=== PATIENT | male | born 1985 | race Hispanic/Latino ===

== ENCOUNTER 2016-11-01 23:09 | Emergency (ER) | payer OTHER ==
[2016-11-02] MEDS ORDERED: MOTRIN PO ONE (05:39)
[2016-11-02] MEDS ORDERED: NORCO 5/325 PO ONE (09:30)
--- NOTE | 2016-11-02 09:35 | Emergency Department Report ---
ED ENT HPI - General Chief complaint: Earache Stated complaint: LEFT EAR BLEEDING Time Seen by Provider: 11/02/16 09:27 Source: patient Mode of arrival: Ambulatory Limitations: No Limitations - History of Present Illness Initial comments: Pt reports L ear pain with tinnitus and bloody drainage x 3 days. Also sinus congestion, no fever. No injuries. MD complaint: ear pain -: Gradual, days(s) (3) Location: L ear Severity: moderate Severity scale (0 -10): 7 Quality: aching Consistency: constant Improves with: none Worsens with: none Associated Symptoms: tinnitus, hearing loss, discharge from ear - Related Data Previous Rx's Medication Instructions Recorded Last Taken Type Acetaminophen/Codeine [Tylenol #3] 1 tab PO Q6H PRN #15 tab 11/02/16 Unknown Rx Amoxicillin [Amoxicillin TAB] 875 mg PO BID #20 tablet 11/02/16 Unknown Rx Allergies Allergy/AdvReac Type Severity Reaction Status Date / Time No Known Allergies Allergy Verified 11/01/16 23:13 ED Dental HPI - General Chief complaint: Earache Stated complaint: LEFT EAR BLEEDING Time Seen by Provider: 11/02/16 09:27 Source: patient Mode of arrival: Ambulatory Limitations: No Limitations - Related Data Previous Rx's Medication Instructions Recorded Last Taken Type Acetaminophen/Codeine [Tylenol #3] 1 tab PO Q6H PRN #15 tab 11/02/16 Unknown Rx Amoxicillin [Amoxicillin TAB] 875 mg PO BID #20 tablet 11/02/16 Unknown Rx Allergies Allergy/AdvReac Type Severity Reaction Status Date / Time No Known Allergies Allergy Verified 11/01/16 23:13 ED Review of Systems ROS: Stated complaint: LEFT EAR BLEEDING Other details as noted in HPI Comment: All other systems reviewed and negative Constitutional: denies: chills, fever Eyes: denies: eye pain, eye discharge, vision change ENT: ear pain, congestion. denies: throat pain Respiratory: denies: cough, shortness of breath, wheezing Cardiovascular: denies: chest pain, palpitations Endocrine: no symptoms reported Gastrointestinal: denies: abdominal pain, nausea, diarrhea Genitourinary: denies: urgency, dysuria Musculoskeletal: denies: back pain, joint swelling, arthralgia Skin: denies: rash, lesions Neurological: denies: headache, weakness, paresthesias Psychiatric: denies: anxiety, depression Hematological/Lymphatic: denies: easy bleeding, easy bruising ED Past Medical Hx - Past Medical History Previous Medical History?: No - Surgical History Past Surgical History?: No - Social History Smoking Status: Current Every Day Smoker Substance Use Type: None - Medications Home Medications: Home Medications Medication Instructions Recorded Confirmed Last Taken Type Acetaminophen/Codeine [Tylenol #3] 1 tab PO Q6H PRN #15 tab 11/02/16 Unknown Rx Amoxicillin [Amoxicillin TAB] 875 mg PO BID #20 tablet 11/02/16 Unknown Rx ED Physical Exam - General Limitations: No Limitations General appearance: alert, in no apparent distress - Head Head exam: Present: atraumatic, normocephalic - Eye Eye exam: Present: normal appearance, PERRL, EOMI - ENT ENT exam: Present: normal orophraynx, mucous membranes moist, other (R TM/canal WNL. L canal shows yin amount of dried blood. TM reveals erythema and what appears to be a very tiny perforation with dried blood at approx 8:00.) - Neck Neck exam: Present: normal inspection - Respiratory Respiratory exam: Present: normal lung sounds bilaterally. Absent: respiratory distress - Cardiovascular Cardiovascular Exam: Present: regular rate, normal rhythm. Absent: systolic murmur, diastolic murmur, rubs, gallop - GI/Abdominal GI/Abdominal exam: Present: soft, normal bowel sounds - Rectal Rectal exam: Present: deferred - Extremities Exam Extremities exam: Present: normal inspection - Back Exam Back exam: Present: normal inspection - Neurological Exam Neurological exam: Present: alert, oriented X3 - Psychiatric Psychiatric exam: Present: normal affect, normal mood - Skin Skin exam: Present: warm, dry, intact, normal color. Absent: rash ED Course Vital Signs 11/01/16 23:15 Temperature 98.7 F Pulse Rate 104 H Respiratory 18 Rate Blood Pressure 128/83 [Right] O2 Sat by Pulse 100 Oximetry - Reevaluation(s) Reevaluation #1: 11/02/16 09:33 NAD, stable for d/c. ED Medical Decision Making - Medical Decision Making Pt appears to have a tiny TM perforation on L. Will place on antibiotics and have him follow with ENT. - Differential Diagnosis OM, OE, TM perforation Critical care attestation.: If time is entered above; I have spent that time in minutes in the direct care of this critically ill patient, excluding procedure time. ED Disposition Clinical Impression: Left otitis media with spontaneous rupture of eardrum Disposition: DISCHARGED TO HOME OR SELFCARE Is pt being admited?: No Condition: Good Instructions: Otitis Media (ED), Ruptured Eardrum (ED) Prescriptions: Acetaminophen/Codeine [Tylenol #3] 1 tab PO Q6H PRN #15 tab PRN Reason: Pain Amoxicillin [Amoxicillin TAB] 875 mg PO BID #20 tablet Referrals: PRIMARY CARE, [Primary Care Provider] - 3-5 Days GEOVANNA OWENS MD [Staff Physician] - 2-3 Days Time of Disposition: 09:35
[2016-11-02 09:42] VITALS: BP 120/82
== END 2016-11-02 09:48 | disposition home or self-care (01) ==
LOC: ED 23:09
DX: H66.012 Acute suppurative otitis media with spontaneous rupture of ear drum, left ear (principal); F17.200 Nicotine dependence, unspecified, uncomplicated
CPT/HCPCS: 99282

== ENCOUNTER 2017-02-20 22:56 | Emergency (ER) | payer SELFPAY ==
--- NOTE | 2017-02-21 05:01 | Emergency Department Report ---
- General Chief complaint: Skin/Abscess/Foreign Body Stated complaint: STAPH INFECTION Time Seen by Provider: 02/21/17 04:58 Source: patient Mode of arrival: Ambulatory Limitations: No Limitations - History of Present Illness Initial comments: 31M PMH abscesses, MRSA infections in the past p/w c/o boil to his LLE in mid calf region x3 days. Denies fevers, chills, states he may have been bitten by spider while cutting grass. On exam pt has visible abscess w'/ surrounding cellulitis left mid calf region about 8 cm in diameter complaint: insect bite/sting, abscess/boil Onset/Timin -: days(s) Tetanus Up to Date: yes Severity: moderate Severity scale (0 -10): 5 Quality: aching Consistency: constant - Related Data Previous Rx's Medication Instructions Recorded Last Taken Type Acetaminophen/Codeine [Tylenol #3] 1 tab PO Q6H PRN #15 tab 11/02/16 Unknown Rx Amoxicillin [Amoxicillin TAB] 875 mg PO BID #20 tablet 11/02/16 Unknown Rx Cephalexin [Keflex] 500 mg PO Q12HR #14 cap 02/21/17 Unknown Rx Ibuprofen [Motrin] 600 mg PO Q8H PRN #30 tablet 02/21/17 Unknown Rx Sulfamethoxazole/Trimethoprim 1 each PO BID #14 tablet 02/21/17 Unknown Rx [Bactrim DS TAB] Allergies Allergy/AdvReac Type Severity Reaction Status Date / Time No Known Allergies Allergy Verified 11/01/16 23:13 Abscess Boil HPI - HPI Chief Complaint: Skin/Abscess/Foreign Body Stated Complaint: STAPH INFECTION Time Seen by Provider: 02/21/17 04:58 Duration: 3 Days History: Yes Pain, Yes Purulent Drainage (mild purulent drainage), Yes Previous History, Yes Insect Bite (possible spider bite), No Fever, No Numbness, No Foreign Body Home Medications: Previous Rx's Medication Instructions Recorded Last Taken Type Acetaminophen/Codeine [Tylenol #3] 1 tab PO Q6H PRN #15 tab 11/02/16 Unknown Rx Amoxicillin [Amoxicillin TAB] 875 mg PO BID #20 tablet 11/02/16 Unknown Rx Cephalexin [Keflex] 500 mg PO Q12HR #14 cap 02/21/17 Unknown Rx Ibuprofen [Motrin] 600 mg PO Q8H PRN #30 tablet 02/21/17 Unknown Rx Sulfamethoxazole/Trimethoprim 1 each PO BID #14 tablet 02/21/17 Unknown Rx [Bactrim DS TAB] Allergies/Adverse Reactions: Allergies Allergy/AdvReac Type Severity Reaction Status Date / Time No Known Allergies Allergy Verified 11/01/16 23:13 ED Review of Systems ROS: Stated complaint: STAPH INFECTION Other details as noted in HPI Constitutional: denies: chills, fever Eyes: denies: eye pain, eye discharge, vision change ENT: denies: ear pain, throat pain Respiratory: denies: cough, shortness of breath, wheezing Cardiovascular: denies: chest pain, palpitations Endocrine: no symptoms reported Gastrointestinal: denies: abdominal pain, nausea, diarrhea Genitourinary: denies: urgency, dysuria Musculoskeletal: denies: back pain, joint swelling, arthralgia Skin: as per HPI. denies: rash, lesions Neurological: denies: headache, weakness, paresthesias Psychiatric: denies: anxiety, depression Hematological/Lymphatic: denies: easy bleeding, easy bruising ED Past Medical Hx - Past Medical History Previous Medical History?: Yes Additional medical history: MRSA - Social History Smoking Status: Current Every Day Smoker - Medications Home Medications: Home Medications Medication Instructions Recorded Confirmed Last Taken Type Acetaminophen/Codeine [Tylenol #3] 1 tab PO Q6H PRN #15 tab 11/02/16 Unknown Rx Amoxicillin [Amoxicillin TAB] 875 mg PO BID #20 tablet 11/02/16 Unknown Rx Cephalexin [Keflex] 500 mg PO Q12HR #14 cap 02/21/17 Unknown Rx Ibuprofen [Motrin] 600 mg PO Q8H PRN #30 tablet 02/21/17 Unknown Rx Sulfamethoxazole/Trimethoprim 1 each PO BID #14 tablet 02/21/17 Unknown Rx [Bactrim DS TAB] ED Physical Exam - General Limitations: No Limitations General appearance: alert, in no apparent distress - Head Head exam: Present: atraumatic, normocephalic - Eye Eye exam: Present: normal appearance, PERRL, EOMI - ENT ENT exam: Present: mucous membranes moist - Neck Neck exam: Present: normal inspection - Respiratory Respiratory exam: Present: normal lung sounds bilaterally. Absent: respiratory distress - Cardiovascular Cardiovascular Exam: Present: regular rate, normal rhythm. Absent: systolic murmur, diastolic murmur, rubs, gallop - GI/Abdominal GI/Abdominal exam: Present: soft, normal bowel sounds - Rectal Rectal exam: Present: deferred - Extremities Exam Extremities exam: Present: normal inspection - Expanded Lower Extremity Exam Left Hip exam: Present: normal inspection, full ROM Upper Leg exam: Present: normal inspection, full ROM Knee exam: Present: normal inspection, full ROM Lower Leg exam: Present: normal inspection, tenderness, erythema (8-9cm area of erythema left mid calf region) Ankle exam: Present: normal inspection, full ROM Foot/Toe exam: Present: normal inspection, full ROM Neuro vascular tendon exam: Present: no vascular compromise (distal pulses and sensation intact) 1 - abscess w/ surrounding cellulitis here - Back Exam Back exam: Present: normal inspection - Neurological Exam Neurological exam: Present: alert, oriented X3, CN II-XII intact, normal gait - Psychiatric Psychiatric exam: Present: normal affect, normal mood - Skin Skin exam: Present: warm, dry, intact, normal color. Absent: rash ED Course Vital Signs 02/21/17 00:00 Temperature 98.0 F Pulse Rate 83 Respiratory 20 Rate Blood Pressure 109/72 O2 Sat by Pulse 96 Oximetry - I & D Left Medial Calf Type of Procedure: Simple Site: left medial calf Blade Size: 11 I & D Procedure: betadine prep, sterile dressing applied, gauze wick placed Progress: infiltrated with lidocaine, good anesthesia achieved, 1.5 cm incision made, moderate pus drainage, wound culture sent, iodoform gauze wick placed about 4 inches in [facility], (1/4 inch gauze). gauze placed externally. procedure tolerated well ED Medical Decision Making - Medical Decision Making A/P: Left medial calf abscess w/ surrounding cellulitis 1- abscess incised and drained, wound culture sent 2- keflex and bactrim bid x7 days. Motrin 600mg prn 3- borders of cellulitis marked, I advised pt to return to the ED if area of cellultis expands beyond borders over 48 hours, if he develosp fevers or chills , nausea or vomiting, reaccumulation of abscess 4- f/u with PMD Critical care attestation.: If time is entered above; I have spent that time in minutes in the direct care of this critically ill patient, excluding procedure time. ED Disposition Clinical Impression: Abscess of left lower leg, Cellulitis of left lower extremity Disposition: TO HOME OR SELFCARE Is pt being admited?: No Does the pt Need Aspirin: No Condition: Stable Instructions: Cellulitis (ED), Abscess Incision and Drainage (ED) Prescriptions: Cephalexin [Keflex] 500 mg PO Q12HR #14 cap Ibuprofen [Motrin] 600 mg PO Q8H PRN #30 tablet PRN Reason: Pain Sulfamethoxazole/Trimethoprim [Bactrim DS TAB] 1 each PO BID #14 tablet Referrals: PRIMARY CARE, [Primary Care Provider] - 3-5 Days Forms: Accompanied Note, Work/School Release Form(ED) Time of Disposition: 06:30
[2017-02-21 06:52] VITALS: BP 117/71
== END 2017-02-21 07:04 | disposition home or self-care (01) ==
LOC: ED 22:56
DX: L03.116 Cellulitis of left lower limb (principal); L02.416 Cutaneous abscess of left lower limb; F17.200 Nicotine dependence, unspecified, uncomplicated
CPT/HCPCS: 87076; 87116; 87186; 99282

== ENCOUNTER 2018-02-15 08:47 | Emergency (ER) | payer SELFPAY ==
[2018-02-15] MEDS ORDERED: NORCO 5/325 PO ONE (12:56)
--- NOTE | 2018-02-15 12:57 | Emergency Department Report ---
Chief Complaint: Extremity Injury, Lower Stated Complaint: FEET SWOLLEN Time Seen by Provider: 02/15/18 12:51 - HPI History of Present Illness: 32-year-old male presents to the emergency department with complaint of bilateral foot pain and some swelling that has been going on for the past 2 weeks. It is worse in the morning and sometimes he feels like he has trouble bearing weight secondary to the discomfort. He also complains of some redness to the second toe of the right foot. He denies any past medical history. He has not taken anything for her symptoms without any sedation. He does not have a primary care physician. - ROS Review of Systems: Positive for foot and toe pain, foot swelling, redness to the toe Negative for fever, nausea, vomiting - Exam Vital Signs: Vital Signs 02/15/18 09:26 Temperature 98.4 F Pulse Rate 67 Respiratory 20 Rate Blood Pressure 105/54 O2 Sat by Pulse 100 Oximetry Physical Exam: Patient is awake and alert and in no acute distress. He has some very mild swelling to the dorsal feet. The second toe on the right foot is slightly enlarged, erythematous and warm MSE screening note: Focused history and physical exam performed. Due to findings the following was ordered: The patient will have a CBC, BMP and uric acid level to evaluate for cellulitis versus gout versus other. X-rays have been done of the bilateral feet. He has been given a [place] for discomfort. ED Disposition for MSE Condition: Stable Referrals: PRIMARY CARE, [Primary Care Provider] - 3-5 Days
[2018-02-15 13:06] VITALS: BP 100/60
[2018-02-15 13:40] LABS: BUN/Creatinine Ratio 15; Basophils # (Auto) 0.1 K/mm3 (0.0-0.1); Basophils % (Auto) 0.7 % (0.0-1.8); Blood Urea Nitrogen 9 mg/dL (9-20); Calcium 8.9 mg/dL (8.4-10.2); Eosinophils # (Auto) 0.2 K/mm3 (0.0-0.4); Eosinophils % (Auto) 2.4 % (0.0-4.3); Hematocrit 36.3 % (35.5-45.6); Hemoglobin 12.8 gm/dl (11.8-15.2); Hemolysis Index 95; Lymphocytes # (Auto) 1.8 K/mm3 (1.2-5.4); Lymphocytes % (Auto) 24.1 % (13.4-35.0); Mean Corpuscular HGB Conc 35 % (32-34); Mean Corpuscular Hemoglobin 30 pg (28-32); Mean Corpuscular Volume 84 fl (84-94); Monocytes # (Auto) 0.8 K/mm3 (0.0-0.8); Monocytes % (Auto) 10.2 % (0.0-7.3); Platelet Count 276 K/mm3 (140-440); Red Blood Count 4.33 M/mm3 (3.65-5.03)
--- NOTE | 2018-02-15 13:43 | XRay Report ---
BILATERAL FEET, 3 VIEWS: The bony architecture is intact. Bony alignment is normal. No soft tissue abnormalities are seen. The joint spaces appear preserved. IMPRESSION: Bilateral feet within normal limits.
--- NOTE | 2018-02-15 14:28 | Emergency Department Report ---
ED Extremity Problem HPI - General Chief complaint: Extremity Injury, Lower Stated complaint: FEET SWOLLEN Time Seen by Provider: 02/15/18 12:51 Source: patient Mode of arrival: Ambulatory Limitations: No Limitations - History of Present Illness Initial comments: 32-year-old male past medical history MRSA presents with complaint of 2 weeks of right second toe pain. Bilateral foot pain and swelling. Denies any fevers chills nausea vomiting direct trauma. Patient is awake alert and oriented 3 and ambulatory. Pain and swelling is only in his feet. Some discomfort near his right great toe as well. Denies any purulent drainage or discharge. Denies any paresthesias. MD Complaint: extremity pain, extremity swelling Onset/Timin -: week(s) Location: left, right, lower extremity, bilateral lower extremity History of Same: Yes Severity scale (0 -10): 5 Quality: aching Consistency: constant Worsens with: weight bearing - Related Data Previous Rx's Medication Instructions Recorded Last Taken Type Acetaminophen/Codeine [Tylenol #3] 1 tab PO Q6H PRN #15 tab 11/02/16 Unknown Rx Amoxicillin [Amoxicillin TAB] 875 mg PO BID #20 tablet 11/02/16 Unknown Rx Cephalexin [Keflex] 500 mg PO Q12HR #14 cap 02/21/17 Unknown Rx Ibuprofen [Motrin] 600 mg PO Q8H PRN #30 tablet 02/21/17 Unknown Rx Sulfamethoxazole/Trimethoprim 1 each PO BID #14 tablet 02/21/17 Unknown Rx [Bactrim DS TAB] Acetaminophen/Codeine [Tylenol 1 tab PO Q6H PRN #10 tab 02/15/18 Unknown Rx /Codeine # 3 tab] Cephalexin [Keflex] 500 mg PO BID #14 capsule 02/15/18 Unknown Rx Ibuprofen [Motrin] 800 mg PO Q8HR PRN #25 tablet 02/15/18 Unknown Rx Sulfamethoxazole/Trimethoprim 1 each PO BID #14 tablet 02/15/18 Unknown Rx [Bactrim DS TAB] Allergies Allergy/AdvReac Type Severity Reaction Status Date / Time No Known Allergies Allergy Verified 11/01/16 23:13 ED Review of Systems ROS: Stated complaint: FEET SWOLLEN Other details as noted in HPI Constitutional: denies: chills, fever Eyes: denies: eye pain, eye discharge, vision change ENT: denies: ear pain, throat pain Respiratory: denies: cough, shortness of breath, wheezing Cardiovascular: denies: chest pain, palpitations Endocrine: no symptoms reported Gastrointestinal: denies: abdominal pain, nausea, diarrhea Genitourinary: denies: urgency, dysuria Musculoskeletal: denies: back pain, joint swelling, arthralgia Skin: denies: rash, lesions Neurological: denies: headache, weakness, paresthesias Psychiatric: denies: anxiety, depression Hematological/Lymphatic: denies: easy bleeding, easy bruising ED Past Medical Hx - Past Medical History Previous Medical History?: Yes Additional medical history: MRSA - Surgical History Past Surgical History?: No - Social History Smoking Status: Current Every Day Smoker Substance Use Type: Non Opiate Pain - Medications Home Medications: Home Medications Medication Instructions Recorded Confirmed Last Taken Type Acetaminophen/Codeine [Tylenol #3] 1 tab PO Q6H PRN #15 tab 11/02/16 Unknown Rx Amoxicillin [Amoxicillin TAB] 875 mg PO BID #20 tablet 11/02/16 Unknown Rx Cephalexin [Keflex] 500 mg PO Q12HR #14 cap 02/21/17 Unknown Rx Ibuprofen [Motrin] 600 mg PO Q8H PRN #30 tablet 02/21/17 Unknown Rx Sulfamethoxazole/Trimethoprim 1 each PO BID #14 tablet 02/21/17 Unknown Rx [Bactrim DS TAB] Acetaminophen/Codeine [Tylenol 1 tab PO Q6H PRN #10 tab 02/15/18 Unknown Rx /Codeine # 3 tab] Cephalexin [Keflex] 500 mg PO BID #14 capsule 02/15/18 Unknown Rx Ibuprofen [Motrin] 800 mg PO Q8HR PRN #25 tablet 02/15/18 Unknown Rx Sulfamethoxazole/Trimethoprim 1 each PO BID #14 tablet 02/15/18 Unknown Rx [Bactrim DS TAB] ED Physical Exam - General Limitations: No Limitations General appearance: alert, in no apparent distress - Head Head exam: Present: atraumatic, normocephalic - Eye Eye exam: Present: normal appearance, PERRL, EOMI - ENT ENT exam: Present: mucous membranes moist - Neck Neck exam: Present: normal inspection - Respiratory Respiratory exam: Present: normal lung sounds bilaterally. Absent: respiratory distress - Cardiovascular Cardiovascular Exam: Present: regular rate, normal rhythm. Absent: systolic murmur, diastolic murmur, rubs, gallop - GI/Abdominal GI/Abdominal exam: Present: soft, normal bowel sounds - Rectal Rectal exam: Present: deferred - Extremities Exam Extremities exam: Present: normal inspection - Expanded Lower Extremity Exam Right Hip exam: Present: normal inspection, full ROM Upper Leg exam: Present: normal inspection, full ROM Knee exam: Present: normal inspection, full ROM Lower Leg exam: Present: normal inspection, full ROM Ankle exam: Present: normal inspection, full ROM Foot/Toe exam: Present: tenderness, swelling, erythema (erythema at distal second toe) Neuro vascular tendon exam: Present: no vascular compromise Gait: Positive: antalgic 1 - Some slight erythema and swelling - Back Exam Back exam: Present: normal inspection - Neurological Exam Neurological exam: Present: alert, oriented X3, CN II-XII intact, abnormal gait (slightly antalgic gait) - Psychiatric Psychiatric exam: Present: normal affect, normal mood - Skin Skin exam: Present: warm, dry, intact, normal color. Absent: rash ED Course Vital Signs 02/15/18 02/15/18 09:26 13:05 Temperature 98.4 F 98.3 F Pulse Rate 67 55 L Respiratory 20 20 Rate Blood Pressure 105/54 Blood Pressure 100/60 [Right] O2 Sat by Pulse 100 100 Oximetry ED Medical Decision Making - Lab Data Result diagrams: 02/15/18 13:01 02/15/18 13:01 - Medical Decision Making A/P: Toe pain, gout versus cellulitis 1-will treat patient empirically with anti-inflammatories and analgesics 2-x-ray shows no fracture I lateral feet 3-labs unremarkable 4-empiric course of Bactrim and Keflex twice a day 7 days to cover empirically for evidence of toe cellulitis. There is no palpable fluctuance or abscess on exam Critical care attestation.: If time is entered above; I have spent that time in minutes in the direct care of this critically ill patient, excluding procedure time. ED Disposition Clinical Impression: Cellulitis of toe of right foot Gout Qualifiers: Gout site: foot Gout etiology: unspecified cause Chronicity: acute Laterality: right Qualified Code(s): M10.9 - Gout, unspecified Disposition: DC-01 TO HOME OR SELFCARE Is pt being admited?: No Does the pt Need Aspirin: No Condition: Stable Instructions: Cellulitis (ED), Acute Gouty Arthritis (ED) Prescriptions: Acetaminophen/Codeine [Tylenol /Codeine # 3 tab] 1 tab PO Q6H PRN #10 tab PRN Reason: Pain Cephalexin [Keflex] 500 mg PO BID #14 capsule Ibuprofen [Motrin] 800 mg PO Q8HR PRN #25 tablet PRN Reason: Pain Sulfamethoxazole/Trimethoprim [Bactrim DS TAB] 1 each PO BID #14 tablet Referrals: [facility] [Provider Group] - 3-5 Days [facility] [Outside] - 3-5 Days [facility] [Provider Group] - 3-5 Days Forms: Accompanied Note, Work/School Release Form(ED) Time of Disposition: 14:37
[2018-02-15 15:12] LABS: Uric Acid 4.4 mg/dL (3.5-7.6)
== END 2018-02-15 15:08 | disposition home or self-care (01) ==
LOC: ED 08:47
DX: M10.9 Gout, unspecified (principal); L03.031 Cellulitis of right toe; F17.200 Nicotine dependence, unspecified, uncomplicated; Z79.899 Other long term (current) drug therapy; Z86.14 Personal history of Methicillin resistant Staphylococcus aureus infection
CPT/HCPCS: 36415; 80048; 84550; 85025

== ENCOUNTER 2018-03-23 06:58 | Emergency (ER) | payer SELFPAY ==
[2018-03-23 07:47] VITALS: BP 117/60
--- NOTE | 2018-03-23 09:37 | Emergency Department Report ---
ED Extremity Problem HPI - General Chief complaint: Extremity Problem,Nontraumatic Stated complaint: BILATERAL LEG PAIN Time Seen by Provider: 03/23/18 09:11 Source: patient Mode of arrival: Ambulatory Limitations: No Limitations - History of Present Illness Initial comments: 32-year-old was here month, for right toe cellulitis and possible gout, patient has been wearing sweaty socks at work seems to have gotten a little bit better at that time however today he has persistent bilateral foot pain with scaly lesions with maceration to the right foot denies trauma wears steel toes at work is here requesting crutches when he is not working something better for his feet no numbness tingling or weakness no fever no past medical history states never followed up since previous visit MD Complaint: extremity pain -: Gradual, days(s) Location: right, lower extremity Associated Symptoms: rash. denies: chest pain, shortness of breath, fever, myalgias, arthralgias - Related Data Previous Rx's Medication Instructions Recorded Last Taken Type Acetaminophen/Codeine [Tylenol #3] 1 tab PO Q6H PRN #15 tab 11/02/16 Unknown Rx Amoxicillin [Amoxicillin TAB] 875 mg PO BID #20 tablet 11/02/16 Unknown Rx Cephalexin [Keflex] 500 mg PO Q12HR #14 cap 02/21/17 Unknown Rx Ibuprofen [Motrin] 600 mg PO Q8H PRN #30 tablet 02/21/17 Unknown Rx Sulfamethoxazole/Trimethoprim 1 each PO BID #14 tablet 02/21/17 Unknown Rx [Bactrim DS TAB] Acetaminophen/Codeine [Tylenol 1 tab PO Q6H PRN #10 tab 02/15/18 Unknown Rx /Codeine # 3 tab] Cephalexin [Keflex] 500 mg PO BID #14 capsule 02/15/18 Unknown Rx Ibuprofen [Motrin] 800 mg PO Q8HR PRN #25 tablet 02/15/18 Unknown Rx Sulfamethoxazole/Trimethoprim 1 each PO BID #14 tablet 02/15/18 Unknown Rx [Bactrim DS TAB] Clindamycin [Clindamycin CAP] 450 mg PO Q8HR #21 capsule 03/23/18 Unknown Rx Clotrimazole 1% [Lotrimin 1%] 1 applic TP BID 30 Days #1 tube 03/23/18 Unknown Rx Allergies Allergy/AdvReac Type Severity Reaction Status Date / Time No Known Allergies Allergy Verified 11/01/16 23:13 ED Review of Systems ROS: Stated complaint: BILATERAL LEG PAIN Other details as noted in HPI Comment: All other systems reviewed and negative Constitutional: denies: diaphoresis, fever, malaise Eyes: denies: eye discharge, vision change ENT: denies: dental pain, hearing loss, epistaxis Respiratory: denies: shortness of breath, SOB with exertion, SOB at rest, stridor Cardiovascular: denies: chest pain, palpitations, dyspnea on exertion, orthopnea , edema, syncope, paroxysmal nocturnal dyspnea Gastrointestinal: denies: abdominal pain, nausea Genitourinary: denies: urgency, dysuria Musculoskeletal: arthralgia, myalgia. denies: back pain, joint swelling Skin: rash, pruritus. denies: change in color, change in hair/nails Neurological: denies: headache, weakness, numbness, paresthesias, confusion, abnormal gait, vertigo ED Past Medical Hx - Past Medical History Previous Medical History?: Yes Additional medical history: MRSA - Surgical History Past Surgical History?: No - Social History Smoking Status: Current Every Day Smoker Substance Use Type: None - Medications Home Medications: Home Medications Medication Instructions Recorded Confirmed Last Taken Type Acetaminophen/Codeine [Tylenol #3] 1 tab PO Q6H PRN #15 tab 11/02/16 Unknown Rx Amoxicillin [Amoxicillin TAB] 875 mg PO BID #20 tablet 11/02/16 Unknown Rx Cephalexin [Keflex] 500 mg PO Q12HR #14 cap 02/21/17 Unknown Rx Ibuprofen [Motrin] 600 mg PO Q8H PRN #30 tablet 02/21/17 Unknown Rx Sulfamethoxazole/Trimethoprim 1 each PO BID #14 tablet 02/21/17 Unknown Rx [Bactrim DS TAB] Acetaminophen/Codeine [Tylenol 1 tab PO Q6H PRN #10 tab 02/15/18 Unknown Rx /Codeine # 3 tab] Cephalexin [Keflex] 500 mg PO BID #14 capsule 02/15/18 Unknown Rx Ibuprofen [Motrin] 800 mg PO Q8HR PRN #25 tablet 02/15/18 Unknown Rx Sulfamethoxazole/Trimethoprim 1 each PO BID #14 tablet 02/15/18 Unknown Rx [Bactrim DS TAB] Clindamycin [Clindamycin CAP] 450 mg PO Q8HR #21 capsule 03/23/18 Unknown Rx Clotrimazole 1% [Lotrimin 1%] 1 applic TP BID 30 Days #1 tube 03/23/18 Unknown Rx ED Physical Exam - General Limitations: No Limitations General appearance: alert, other (nontoxic) - Head Head exam: Present: atraumatic, normocephalic - Eye Eye exam: Present: normal appearance, PERRL, EOMI - ENT ENT exam: Present: normal exam, normal orophraynx - Neck Neck exam: Present: normal inspection. Absent: tenderness, meningismus - Respiratory Respiratory exam: Present: normal lung sounds bilaterally. Absent: respiratory distress, wheezes, rales, rhonchi, stridor, chest wall tenderness, accessory muscle use, decreased breath sounds - Cardiovascular Cardiovascular Exam: Present: regular rate - GI/Abdominal GI/Abdominal exam: Present: soft - Extremities Exam Extremities exam: Present: other (bilateral foot maceration erythema or scale some macules to the plantar aspect question of cellulitis) - Neurological Exam Neurological exam: Present: alert, oriented X3, CN II-XII intact. Absent: motor sensory deficit (no Homans) ED Course Vital Signs 03/23/18 07:39 Temperature 98.5 F Pulse Rate 89 Respiratory 18 Rate Blood Pressure 117/60 O2 Sat by Pulse 99 Oximetry ED Medical Decision Making - Medical Decision Making Patient refuses x-ray, did have negative x-ray last time denies trauma denies drug or alcohol use symptoms are likely related to tinea as well as maybe an early cellulitis RPR is pending stable for outpatient follow-up Critical care attestation.: If time is entered above; I have spent that time in minutes in the direct care of this critically ill patient, excluding procedure time. ED Disposition Clinical Impression: Tinea pedis, Foot pain Disposition: DC-01 TO HOME OR SELFCARE Is pt being admited?: No Condition: Stable Instructions: Tinea Pedis (ED), Cellulitis (ED) Additional Instructions: See the doctor listed return immediately if new alarming symptoms usual medicines as directed and crutches as needed see the doctor listed, keep feet clean and dry Prescriptions: Clindamycin [Clindamycin CAP] 450 mg PO Q8HR #21 capsule Clotrimazole 1% [Lotrimin 1%] 1 applic TP BID 30 Days #1 tube Referrals: PRIMARY CARE, [Primary Care Provider] - 3-5 Days YENNY COOK MD [Staff Physician] - 3-5 Days
== END 2018-03-23 10:14 | disposition home or self-care (01) ==
LOC: ED 06:58
DX: B35.3 Tinea pedis (principal); M79.671 Pain in right foot; M79.672 Pain in left foot; F17.200 Nicotine dependence, unspecified, uncomplicated; Z79.899 Other long term (current) drug therapy
CPT/HCPCS: 36415; 86592; 99282